=== PATIENT | female | born 1985 | race Caucasian/White ===

== ENCOUNTER 2025-04-21 18:25 | Emergency (ER) | payer OTHER ==
[~2025-04-21] VITALS: Ht 165.1 cm; Wt 100.0 kg
[2025-04-21 18:54] LABS: BASOPHILS # (AUTO) 0.1 X10'3 (0-0.2); BASOPHILS % (AUTO) 0.7 % (0-1); EOSINOPHILS # (AUTO) 0.1 X10'3 (0-0.9); EOSINOPHILS % (AUTO) 0.7 % (0-6); HEMOGLOBIN 13.9 g/dl (12.0-16.0); LYMPHOCYTES # (AUTO) 4.8 X10'3 (1.1-4.8); LYMPHOCYTES % (AUTO) 29.2 % (21-51); MEAN CORPUSCULAR HEMOGLOBIN 33.3 PG (27.0-31.0); MEAN CORPUSCULAR VOLUME 97.7 FL (78-98); MEAN PLATELET VOLUME 8.2 FL (7.4-10.4); MONOCYTES # (AUTO) 0.9 X10'3 (0-0.9); MONOCYTES % (AUTO) 5.8 % (2-12); NEUTROPHILS # (AUTO) 10.4 X10'3 (1.8-7.7); NEUTROPHILS % (AUTO) 63.6 % (42-75); PLATELET COUNT 226 X10'3 (140-440); RED BLOOD COUNT 4.19 X10'6 (4.20-5.60); RED CELL DISTRIBUTION WIDTH 13.9 % (11.5-14.5); WHITE BLOOD COUNT 16.3 X10'3 (4.5-11.0)
--- NOTE | 2025-04-21 19:05 | Physician Documentation ---
History of Present Illness Chief Complaint: Abdominal Pain w/vomiting Stated Complaint: ABD PAIN/HAS NOT BEEN ABLE TO KEEP FOOD DOWN [id number] Time Seen by MD: 18:32 HPI 39-year-old female presents to the ED with one-week of midsternal GI pain with nausea vomiting. States that she has had her gallbladder removed and a hysterectomy. She reports that she also has a hiatal hernia. She has been taking omeprazole twice daily for an extended period time without any changes to her medication regimen. denies Fevers. States she is unable hold down any food Day of Onset: Apr 21, 2025 Medication Reconciliation Allergies: Coded Allergies: Penicillins (Unverified Allergy, Unknown, 04/21/25) naproxen (Unverified Allergy, Unknown, 04/21/25) sumatriptan (Unverified Allergy, Unknown, 04/21/25) Scheduled Pantoprazole Sodium (PROTONIX tablet), 1 TAB PO DAILY Review of Systems All Other Systems at this time: Reviewed and Negative ROS As stated above in the HPI, otherwise all systems are reviewed and negative. Physical Exam Vital Signs: Temperature: 97.5, Source: Oral, Heart Rate: 113, Respiratory Rate: 20, BP: 129/97, Pulse Oximetry: 98, Weight: 100.000 Physical Exam General: Alert, no apparent distress. Respiratory: Lungs clear, no respiratory distress. Cardiovascular: Regular rate and rhythm, no murmurs. Gastrointestinal: Soft, nontender, nondistended. Bowels sounds present. Neurologic: Oriented x4. Psychiatric: Normal mood and affect. Skin: Normal color, warm and dry. No edema, no ecchymosis. Progress Results/Orders Results/Orders Completed Orders - ALFREDO MIRANDA NP Normal Saline 1000ml (Sodium Chloride 10 (04/21/25 19:00) Ondansetron Inj. (Zofran 4mg/2ml Vial) (04/21/25 19:00) Vital Signs 04/21/25 18:28 Temp 97.5 Pulse 113 Resp 20 B/P (MAP) 129/97 Pulse Ox 98 Laboratory Tests Test 04/21/25 18:42 CBC Comment Chemistry Comments Medical Decision Making Findings CT indicates: No bowel obstruction, free intraperitoneal air / fluid or sizable inflammatory collections identified on this noncontrast examination. Nonobstructing bilateral nephrolithiasis. I suspect based on patient's complaint of midepigastric pain that unremarkable hiatal hernia and/or GERD was the contributing factor to her pain. Reports overall improvement in symptoms after receiving Protonix and Toradol. Addition the CT made note of small nonobstructing renal calculi bilaterally. I spent time with the patient advised her to increase fluid intake and take ibuprofen as directed to help with passing the kidney stone Lasts a talked with the patient about her prescription on omeprazole. Going to switch her to Protonix for increased efficacy Differential Dx:Considerations: Include: AAA, -Complete, - Incomplete, -Inevitable, -Missed, -Threatened, Abruptio placentae, Angina/OR, Aortic dissection, Appendicitis, Bowel obstruction, Cholangitis, Cholelithasis, Constipation, Diverticular disease, Esophageal rupture, Esophagitis, Gastritis/PUD, Gastroenteritis, GI hemorrhage, Hernia, Hepatitis, Inflammatory BD, Ischemic bowel, Ovarian cyst/torsion, Pancreatitis, PID, Porphyria, Trauma, intraabdominal, Urinary obstruction, Urinary tract infection, Urolithiasis, Other Departure Disposition: HOME / SELF CARE / HOMELESS Impression: Primary Impression: Abdominal pain Discharge Instructions: Gastritis, Adult, Hiatal Hernia Referrals: NO PRIMARY CARE PROVIDER (PCP) Prescriptions Pantoprazole Sodium (PROTONIX tablet) 40 Mg Tablet.dr 1 TAB PO DAILY for 30 Days, #30 TAB 0 Refills Prov: ALFREDO MIRANDA NP 04/21/25 Education Educated: Patient Educated regarding: diagnosis Signature Scribe Signature: f Attestation: Scribed for Alfredo Miranda [employer] Gear Generator Operator by Alfredo Martins NP . 04/21/25 23:24 ALFREDO MIRANDA NP Apr 21, 2025 19:05
[2025-04-21 19:06] LABS: ALANINE AMINOTRANSFERASE 105 U/L (12-78); ALBUMIN 3.8 G/DL (3.4-5.0); ALKALINE PHOSPHATASE 95 IU/L (46-116); ANION GAP 11 (8-16); ASPARTATE AMINO TRANSFERASE 55 U/L (10-37); BILIRUBIN,TOTAL 0.8 MG/DL (0.1-1.0); BLOOD UREA NITROGEN 11 MG/DL (7-18); BUN/CREATININE RATIO 8.3 (10.0-20.0); CALCIUM 9.2 MG/DL (8.5-10.1); CHLORIDE 106 MMOL/L (99-107); CREATININE 1.32 MG/DL (0.40-0.90); GLUCOSE 104 MG/DL (70-104); LIPASE 24 U/L (16-77); POTASSIUM 3.6 MMOL/L (3.5-5.1); SODIUM 139 MMOL/L (135-145); TOTAL CARBON DIOXIDE 21.8 MMOL/L (24-32); TOTAL PROTEIN 7.6 G/DL (6.4-8.2); eCRCL 50 ML/MIN; eGFR 44 ML/MIN
[2025-04-21] MEDS: ondansetron/PF 4mg/2ml inj IV ONE (19:10)
[2025-04-21] MEDS: normal saline 1000ML IV soln IVB ONE (19:10)
[2025-04-21] MEDS: pantoprazole 40 MG vial IV ONE (19:19)
--- NOTE | 2025-04-21 20:27 | RADIOLOGY REPORT ---
CT SCAN ABDOMEN AND PELVIS WITHOUT CONTRAST CLINICAL HISTORY: abdimal pain Hx of hiatal hernia TECHNIQUE: Helical axial images are obtained from the lung bases through the pelvis without oral cont rast. No intravenous contrast was administered. Coronal and sagittal reformatted images were generate d from thin section reconstructions. One or more of the following radiation dose reduction techniques were used for this examination: automated exposure control, adjustment of the mA and/or kV according to patient size, use of iterative reconstruction technique. COMPARISON: None FINDINGS: LOWER THORAX: Imaged lung bases are grossly clear. ABDOMEN AND PELVIS: Evaluation of visceral and vascular structures is limited due to lack of contrast administration. As visualized, the unenhanced liver, spleen, pancreas and adrenals appear grossly unremarkable. The g allbladder is surgically absent. No appreciable biliary ductal dilatation. No hydroureteronephrosis or sizable, obstructing urinary tract calculi identified at this time. Nonob structing bilateral nephrolithiasis, the largest calculus measuring approximately 5-6 mm in the left renal lower pole. No evidence of abdominal aortic aneurysm. No sizable hiatal hernia. No evidence of bowel obstruction. Normal caliber appendix. Scattered coloni c diverticuli without definite CT evidence of diverticulitis at this time. No free intraperitoneal a ir or fluid identified. Tiny fat containing umbilical hernia. No sizable bladder calculus. Cystic prominence of the left ovary to approximately 4 cm. No destructive osseous lesions identified. IMPRESSION: No sizable hiatal hernia identified at this time. No bowel obstruction, free intraperitoneal air / fluid or sizable inflammatory collections identified on this noncontrast examination. Nonobstructing bilateral nephrolithiasis. Cystic prominence of the left ovary which can be further evaluated with follow-up ultrasound. Colonic diverticulosis without CT evidence of diverticulitis at this time.
[2025-04-21] MEDS ORDERED: PANT-47 PO (20:35)
[2025-04-21 20:42] VITALS: BP 147/83; PULSE 88; RESP 12; TEMP 97.5; O2SAT 98
== END 2025-04-21 20:55 | disposition home or self-care (01) ==
LOC: ER 18:27
DX: R10.9 Unspecified abdominal pain (principal); R11.2 Nausea with vomiting, unspecified; Z88.0 Allergy status to penicillin; Z88.6 Allergy status to analgesic agent
CPT/HCPCS: 36415; 74176; 80053; 83690; 85025; 96365; 96375; 99285; J2405; J2470; J7030; 96366